=== PATIENT | male | born 1985 | race Caucasian/White ===

== ENCOUNTER 2020-08-02 08:00 | Outpatient (CLI) | payer OTHER ==
[2020-08-02 16:56] LABS: Albumin (w/Testosterone Panel) 4.4 g/dL
[2020-08-02 17:23] LABS: Sex Hormone Binding Globulin 25.2 nmol/L (11-78); Testosterone, Free 75.1 pg/mL (47-244); Testosterone, Total 330.3 ng/dL (240-871)
[2020-08-02 17:25] LABS: Follicle Stimulating Hormone 12.33 mIU/mL (See Ranges); Luteinizing Hormone 4.3 mIU/mL (See Ranges)
== END 2020-08-02 08:01 | disposition home or self-care (01) ==
LOC: MADLAB 08:00
PROVIDERS: ATTEND Internal Medicine Endocrinology, Diabetes & Metabolism
DX: E29.1 Testicular hypofunction (principal)
CPT/HCPCS: 36415; 83001; 83002; 84270; 84403